=== PATIENT | male | born 1985 | race Caucasian/White ===

== ENCOUNTER 2017-11-29 21:38 | Emergency (ER) | payer BC ==
[~2017-11-29] VITALS: Ht 185.4 cm; Wt 122.5 kg
[2017-11-29 21:43] VITALS: BP 153/107
--- NOTE | 2017-11-29 21:45 | NUR ---
BIBSELF C/O FLU LIKE SYMPTOMS SINCE FRIDAY, PETER NOTED, VSS, RESP EVEN AND UNLABORED, WAITING FOR MD TORREZ.
--- NOTE | 2017-11-29 22:21 | NUR ---
RAPID FLU TEST DONE, CALLED LAB FOR ONLINE MEDIA BUYER
== END 2017-11-29 23:14 | disposition home or self-care (01) ==
LOC: ER 21:44
DX: J02.9 Acute pharyngitis, unspecified (principal); Z98.890 Other specified postprocedural states
CPT/HCPCS: 87400; A4606; Z7610

== ENCOUNTER 2023-06-24 08:26 | Emergency (ER) | payer BC ==
[~2023-06-24] VITALS: Ht 185.4 cm; Wt 139.3 kg
[2023-06-24] MEDS: CYCLOBENZAPRINE 10 MG TABLET PO ONE (09:00)
[2023-06-24] MEDS: ACETAMINOPHEN ES 500 MG TABLET PO ONE (09:00)
[2023-06-24] MEDS: TDAP [DIPH/PERTUSSIS/TET] 0.5 ML VIAL IM ONE (09:00)
[2023-06-24] MEDS ORDERED: ACETAMINOPHEN ES 500 MG TABLET ONE (09:01)
[2023-06-24] MEDS ORDERED: LIDOCAINE 1%-EPI 1:100,000 20 ML VIAL ONE (09:01)
[2023-06-24] MEDS ORDERED: TDAP [DIPH/PERTUSSIS/TET] 0.5 ML VIAL IM ONE (09:02)
[2023-06-24] MEDS ORDERED: CYCLOBENZAPRINE 10 MG TABLET ONE (09:02)
[2023-06-24] MEDS: LIDOCAINE 1%-EPI 1:100,000 20 ML VIAL TP ONE (09:18)
[2023-06-24 11:52] VITALS: BP 110/88; TEMP 98; O2SAT 98
== END 2023-06-24 11:54 | disposition home or self-care (01) ==
LOC: ER 08:29
DX: S01.81XA Laceration without foreign body of other part of head, initial encounter (principal); R07.81 Pleurodynia; Z98.890 Other specified postprocedural states; V89.2XXA Person injured in unspecified motor-vehicle accident, traffic, initial encounter; Y93.89 Activity, other specified; Y92.89 Other specified places as the place of occurrence of the external cause; Y99.8 Other external cause status
CPT/HCPCS: 12013; 70450; 71045; 90471; 90715; 99285; A6403; J3490